=== PATIENT | male | born 1975 | race Caucasian/White ===

== ENCOUNTER 2017-12-01 00:13 | Emergency (ER) | payer OTHER ==
[~2017-12-01] VITALS: Ht 172.7 cm; Wt 106.6 kg
[~2017-12-01 00:13] MED LIST: ADVAIR HFA 230M12 GM INH; AEROECLIPSE1 EACH MC; AFRIN15 ML NS; ALBUTEROL2.5 MG/0.5 INH; ALBUTEROL2.5 MG/3 M IH; ALBUTEROL2.5 MG/31 INH; AMOXICILLIN 50500 M1 PO; BACTRIM DS TAB1 EACH PO; CIPROFLOXACIN500 M1 PO; DUONEB 2.5-0.5 M3 ML INH; FLEXERIL PO; FLOMAX PO; FLONASE 0.05%50 MCG NASAL; HYDROCODONE-AP1 EAC6 PO; IBUPROFEN 800800 M1 PO; LISINOPRIL10 MG PO; LOPRESSOR50 PO; LORTAB 5 MG/5001 TA1 PO; MEDROLDOSEPACK PO; NAPROSYN500 MG PO; NEBULIZER MISCELL; NOHOMEMEDICATIONS; NORCO 5-325 TA1 EAC1 PO; NORCO 5-325 TA1 EACH PO; PERCOCET 5-3251 EACH PO; PREDNISONE 20 M20 M1 PO; PREDNISONE 20 M20 MG PO; PREDNISONE50 MG PO; PROAIR HFA8.5 GM; PROAIR HFA8.5 GM IH; PROAIR HFA8.5 GM INH; PROVENTIL HFA6.7 G1 INH; ROBAXIN 750 MG750 M1 PO; SYMBICORT160 MCG/4. INH; SYMBICORT80 MCG/4.5 INH; TRAMADOL 50 MG50 MG PO; VENTOLIN HFA 1818 GM INH; ZOFRAN4 MG PO; ZPAK PO
[2017-12-01 00:57] VITALS: BP 141/80
== END 2017-12-01 00:58 | disposition home or self-care (01) ==
LOC: M.ERS 00:13
DX: S60.021A Contusion of right index finger without damage to nail, initial encounter (principal); J45.909 Unspecified asthma, uncomplicated; I10 Essential (primary) hypertension; Z86.14 Personal history of Methicillin resistant Staphylococcus aureus infection; W22.8XXA Striking against or struck by other objects, initial encounter; Y93.89 Activity, other specified; Y92.89 Other specified places as the place of occurrence of the external cause; Y99.8 Other external cause status

== ENCOUNTER 2018-02-27 07:04 | Emergency (ER) | payer OTHER ==
[~2018-02-27] VITALS: Ht 172.7 cm; Wt 103.4 kg
[2018-02-27] MEDS ORDERED: MEDROL DOSPAK21 TA1 PO (08:32)
[2018-02-27 08:48] VITALS: BP 145/95
[2018-02-28] MEDS ORDERED: PREDNISONE50 MG PO (05:34)
[2018-02-28] MEDS ORDERED: PROAIR HFA8.5 GM PO (05:34)
== END 2018-02-27 08:50 | disposition home or self-care (01) ==
LOC: M.ERS 07:04
DX: J45.901 Unspecified asthma with (acute) exacerbation (principal); I10 Essential (primary) hypertension; Z86.14 Personal history of Methicillin resistant Staphylococcus aureus infection

== ENCOUNTER 2018-02-28 04:45 | Emergency (ER) | payer OTHER ==
[~2018-02-28] VITALS: Ht 172.7 cm; Wt 103.4 kg
[~2018-02-28 04:45] MED LIST changes: +MEDROL DOSPAK21 TA1 PO
[2018-02-28] MEDS ORDERED: PREDNISONE50 MG PO (05:34)
[2018-02-28] MEDS ORDERED: PROAIR HFA8.5 GM PO (05:34)
[2018-02-28 05:49] VITALS: BP 142/84
== END 2018-02-28 06:34 | disposition home or self-care (01) ==
LOC: M.ERS 04:45
DX: J45.901 Unspecified asthma with (acute) exacerbation (principal); I10 Essential (primary) hypertension; Z86.14 Personal history of Methicillin resistant Staphylococcus aureus infection

== ENCOUNTER 2019-07-23 04:40 | Emergency (ER) | payer OTHER ==
[~2019-07-23] VITALS: Ht 172.7 cm; Wt 106.6 kg
[~2019-07-23 04:40] MED LIST changes: +PROAIR HFA8.5 GM PO
[2019-07-23] MEDS ORDERED: PROAIR HFA8.5 GM INH (06:02)
[2019-07-23] MEDS ORDERED: MEDROLDOSEPACK PO (06:02)
[2019-07-23] MEDS ORDERED: NORFLEX100 MG PO (06:10)
[2019-07-23 06:34] VITALS: BP 168/90
== END 2019-07-23 06:34 | disposition home or self-care (01) ==
LOC: M.ERS 04:40
DX: J45.901 Unspecified asthma with (acute) exacerbation (principal); M62.830 Muscle spasm of back; I10 Essential (primary) hypertension